=== PATIENT | female | born 1950 | race Caucasian/White ===

== ENCOUNTER 2017-08-07 13:34 | Emergency (ER) | payer OTHER ==
[2017-08-07 14:00] VITALS: RESP 16
--- NOTE | 2017-08-07 14:50 | EDPHY ---
H & P Stated Complaint: wound vac issues Time Seen by Provider: 08/07/17 14:21 HPI/ROS: CHIEF COMPLAINT: Wound VAC malfunction HISTORY OF PRESENT ILLNESS: This is a 67-year-old female who underwent debridement of a right lower extremity wound prior to planned skin grafting. The debridement was performed around 07/16/2017 and she is scheduled to undergo skin grafting next week. She presents today with a malfunction of her wound VAC. There is an occlusion at the takeoff of the tubing from her extremity. REVIEW OF SYSTEMS: A ten point review of systems was performed and is negative with the exception of the items mentioned in the HPI. She had diarrhea. Stool is been sent for culture. She is taking Augmentin and Flagyl. Past medical history: Right lower extremity injury Past surgical history: Right lower extremity debridement Social history: She does not use tobacco products. She is employed. General Appearance: Alert. Vital signs reviewed. Eyes: Pupils equal and round, no conjunctival injection, no discharge. Anicteric. ENT, Mouth: Mucous membranes are moist, no oropharyngeal erythema or edema. Neck: No lymphadenopathy, supple. Respiratory: Lungs are clear to auscultation; no wheezes, rales, or rhonchi. Cardiovascular: Regular rate and rhythm; no murmur, rub, or gallop. Gastrointestinal: Abdomen is soft and nontender, no masses or organomegaly, bowel sounds normal. Skin: Wound VAC in place over her right lower extremity. There is an area of erythema visible underlying the wound VAC dressing. Wound VAC itself is registering that there is an obstruction present. Back: Nontender to palpation over the thoracolumbar spine. No CVAT. Extremities: No lower extremity edema, no calf tenderness or swelling. Neurological: Alert and oriented. Moving all four extremities easily and equally. Psychiatric: Normal affect. - Personal History Current Tetanus/Diphtheria Vaccine: Yes Current Tetanus Diphtheria and Acellular Pertussis (TDAP): Yes - Medical/Surgical History Hx Asthma: No Hx Chronic Respiratory Disease: No Hx Diabetes: No Hx Cardiac Disease: No Hx Renal Disease: No Hx Cirrhosis: No Hx Alcoholism: No Hx HIV/AIDS: No Hx Splenectomy or Spleen Trauma: No Other PMH: HTN, R leg fx, poss c.diff - Social History Smoking Status: Never smoked Constitutional: Initial Vital Signs Temperature (C) 36.9 C 08/07/17 13:55 Heart Rate 84 08/07/17 13:55 Respiratory Rate 16 08/07/17 13:55 Blood Pressure 152/91 H 08/07/17 13:55 O2 Sat (%) 92 08/07/17 13:55 O2 Delivery Mode Room Air Allergies/Adverse Reactions: No Known Allergies Allergy (Verified 08/07/17 13:54) Home Medications: Medication Instructions Recorded Amlodipine Besylate 07/19/17 Herbals/Supplements -Info Only 07/19/17 Lisinopril 07/19/17 Zolpidem Tartrate 07/19/17 Augmentin 200 MG/5 ML (*) 08/07/17 Metronidazole 08/07/17 Medical Decision Making ED Course/Re-evaluation: Dr. Mckenzie came to the emergency department and dealt with this lady's wound VAC. She will follow up with Dr. Guo. No other emergency department treatment needed. Differential Diagnosis: Considered a differential diagnosis that includes but is not limited to wound VAC malfunction, lower extremity infection, DVT. Departure - Departure Disposition: Home, Routine, Self-Care Clinical Impression: WOUND VAC Condition: Good Instructions: Negative Pressure Wound Therapy (DC) Additional Instructions: Follow up with Dr. Guo as planned. Referrals: BOBO GONZALES [Other] - As per Instructions Marta Guo MD [Medical Doctor] - As per Instructions
[2017-08-07 16:28] VITALS: BP 145/75; PULSE 78; TEMP 97.9; O2SAT 96
== END 2017-08-07 16:28 | disposition home or self-care (01) ==
DX: T81.89XA Other complications of procedures, not elsewhere classified, initial encounter (principal); I10 Essential (primary) hypertension; Y82.9 Unspecified medical devices associated with adverse incidents

== ENCOUNTER 2017-08-13 06:09 | Day surgery (SDC) | payer OTHER ==
[2017-08-13] MEDS ORDERED: ceFAZolin 2 GM/SWFI 2 GM/20 ML SYR IVP ONE (06:27)
[2017-08-13] MEDS ORDERED: LIDOCAINE 1% 2 ML INJ ID PRN (06:28)
[2017-08-13] MEDS ORDERED: LR 1,000 ML IV ONE (06:32)
[2017-08-13 07:02] VITALS: PULSE 83
--- NOTE | 2017-08-13 07:27 | PDHPUP ---
History & Physical Update H&P update statement: This history and physical update is based on an assessment of the patient which was completed after admission or registration (within 24 hours), but prior to the surgery/procedure. H&P update: H&P reviewed & patient examined, changes noted H&P changes: Patient diagnosed with C. diff, currently being treated with oral Vancomycin. No longer having diarrhea.
[2017-08-13] MEDS ORDERED: THROMBIN (BOVINE) 20,000 UNIT SPRAY TP ONE (07:37)
[2017-08-13] MEDS ORDERED: MINERAL OIL 10 ML VIAL ONE (07:37)
[2017-08-13] MEDS ORDERED: BUPIVACAINE 0.5% 10 ML SDV ONE (07:37)
[2017-08-13] MEDS ORDERED: MIDAZOLAM 2 MG/2 ML VIAL ONE ×2 (08:26→08:36)
[2017-08-13] MEDS ORDERED: PROPOFOL 200 MG/20 ML VIAL ONE (08:34)
[2017-08-13] MEDS ORDERED: fentaNYL 100 MCG/2 ML INJ ONE ×2 (08:34→08:58)
[2017-08-13] MEDS ORDERED: MIDAZOLAM 2 MG/2 ML VIAL IVP ONE (08:36)
[2017-08-13] MEDS ORDERED: NALOXONE HCL 0.4 MG/ML INJ IVP PRN (08:37)
--- NOTE | 2017-08-13 08:37 | PDANEPAE ---
ANE Past Medical History - Cardiovascular History Hx Hypertension: Yes Hx Arrhythmias: No Hx Chest Pain: No Hx Coronary Artery / Peripheral Vascular Disease: No Hx CHF / Valvular Disease: No Hx Palpitations: No - Pulmonary History Hx COPD: No Hx Asthma/Reactive Airway Disease: No Hx Recent Upper Respiratory Infection: No Hx Oxygen in Use at Home: No Hx Sleep Apnea: No Sleep Apnea Screening Result - Last Documented: Negative - Neurologic History Hx Cerebrovascular Accident: No Hx Seizures: No Hx Dementia: No - Endocrine History Hx Diabetes: No - Renal History Hx Renal Disorders: No - Liver History Hx Hepatic Disorders: No - Neurological & Psychiatric Hx Hx Neurological and Psychiatric Disorders: No - Cancer History Hx Cancer: No - Congenital Disorder History Hx Congenital Disorders: No - GI History Hx Gastrointestinal Disorders: Yes Gastrointestinal History Comment: gerd,currently diarrhea - Other Health History Other Health History: right leg wound - Chronic Pain History Chronic Pain: No - Surgical History Prior Surgeries: COLONOSCOPY. CYST REMOVAL. WISDOM TEETH ANE Review of Systems Review of Systems: - Exercise capacity METS (RN): 4 METS ANE Patient History - Allergies Allergies/Adverse Reactions: No Known Allergies Allergy (Verified 08/13/17 07:03) - Home Medications Home Medications: Amlodipine Besylate 07/19/17 [Last Taken 08/12/17] Herbals/Supplements -Info Only 07/19/17 [Last Taken 08/06/17] Lisinopril 07/19/17 [Last Taken 08/13/17] Zolpidem Tartrate 07/19/17 [Last Taken 08/12/17] Augmentin 200 MG/5 ML (*) 08/07/17 [Last Taken 08/12/17] Metronidazole 08/07/17 [Last Taken 08/12/17] - NPO status NPO Since - Liquids (Date): 08/12/17 NPO Since - Liquids (Time): 22:00 NPO Since - Solids (Date): 08/12/17 NPO Since - Solids (Time): 20:00 - Anes Hx Anes Hx: no prior problems - Smoking Hx Smoking Status: Never smoked - Family Anes Hx Family Hx Anesthesia Complications: NONE ANE Labs/Vital Signs - Vital Signs Blood Pressure: 119/73 Heart Rate: 83 Respiratory Rate: 16 O2 Sat (%): 91 Height: 165.1 cm Weight: 70.307 kg ANE Physical Exam - Airway Neck exam: FROM Mallampati Score: Class 2 Mouth exam: normal dental/mouth exam - Pulmonary Pulmonary: no respiratory distress, no rales or rhonchi, clear to auscultation - Cardiovascular Cardiovascular: regular rate and rhythym, no murmur, rub, or gallop - ASA Status ASA Status: II ANE Anesthesia Plan Anesthesia Plan: GA w LMA
[2017-08-13] MEDS ORDERED: ONDANSETRON 4 MG/2 ML VIAL ONE (08:38)
[2017-08-13] MEDS ORDERED: DEXAMETHASONE 4 MG/ML VIAL ONE (08:38)
[2017-08-13] MEDS ORDERED: LIDOCAINE 2% 5 ML SDV ONE (08:38)
[2017-08-13] MEDS ORDERED: ONDANSETRON 4 MG/2 ML VIAL IVP PRN (09:23)
[2017-08-13] MEDS ORDERED: LR 500 ML IV PRN (09:23)
[2017-08-13] MEDS ORDERED: ACETAMINOPHEN 500 MG TAB PO PRN (09:23)
[2017-08-13] MEDS ORDERED: PROMETHAZINE HCL 25 MG/ML INJ IVP PRN (09:23)
[2017-08-13] MEDS ORDERED: OXYCODONE/APAP 5/325 TAB PO PRN (09:23)
[2017-08-13] MEDS ORDERED: fentaNYL 100 MCG/2 ML INJ IVP PRN (09:23)
--- NOTE | 2017-08-13 09:31 | POSTOPPROG ---
Post Op Note Date of Operation: 08/13/17 Surgeon: Marta Guo Adult Parole Officer: angela Anesthesiologist: junie Anesthesia: GET(General Endotracheal) Pre-op Diagnosis: traumatic RLE wound Post-op Diagnosis: same Indication: 67yoF with traumatic hematoma s/p wound vac therapy now ready for STSG Procedure: debridement skin soft tissue with misonix, STSG with wound vac placement Findings: 16x8cm, 100% healthy granulation tissue Inf/Abcess present in the surg proc area at time of surgery?: No Depth: Superfical (Skin SQ) EBL: Minimal Drains: Wound Vac Specimen(s): none
--- NOTE | 2017-08-13 09:49 | POSTANESTH ---
Post Anesthetic Evaluation Cardiovascular Status: Normal, Stable, Similar to Pre-Op Cond Respiratory Status: Normal, Stable, Similar to Pre-op Cond. Level of Consciousness/Mental Status: Can Participate in Eval, Alert and Oriented Pain Control: Adequate, Prn Tx Ordered Nausea/Vomiting Control: Adequate, Prn Tx Ordered Complications Possibly Related to Anesthesia: None Noted
[2017-08-13 09:51] VITALS: TEMP 97.9
[2017-08-13 10:00] VITALS: BP 121/71; RESP 14; O2SAT 97
--- NOTE | 2017-08-13 11:43 | GOP ---
[f rep st] OPERATIVE REPORT DATE OF OPERATION: 08/13/2017 SURGEON: Marta Guo MD TECHNICAL SUPERVISOR: Vanita Fregoso, DASH ANESTHESIA: General. ANESTHESIOLOGIST: José Luis Galarza MD PREOPERATIVE DIAGNOSIS: Right lower extremity traumatic hematoma. POSTOPERATIVE DIAGNOSIS: Right lower extremity traumatic hematoma. PROCEDURE PERFORMED: Debridement skin and soft tissue, 16 x 8 cm to the level of subcutaneous tissue with split-thickness skin graft. FINDINGS: Wound measures 16 x 8 x 0.1 cm with healthy granulation tissue at the base. SPECIMENS: None. ESTIMATED BLOOD LOSS: 10 cc. INDICATIONS: The patient is a 67-year-old woman who had trauma to her leg, broke her leg, and had a large hematoma. She required operative debridement for the traumatic hematoma on her legs. She has been doing wound VAC therapy and now presents for skin graft. DESCRIPTION OF PROCEDURE: Patient was brought into the operating room and placed supine on the table. General anesthesia was administered. Her right lower extremity was prepped and draped in the usual sterile fashion. I debrided the right lower extremity wound with my Misonix, to the level of healthy bleeding subcutaneous tissue. I then obtained a split-thickness skin graft from the right upper thigh at 1/12 thousandth of an inch. I performed high hand pie crusting. I placed the skin graft dermis side down and stapled into place, followed by Adaptic Touch and a wound VAC. On the thigh, hemostasis was achieved with electrocautery. Marjorie, Mepilex transfer, and a Tegaderm were placed. She was awakened in the operating room, extubated, and transferred to PACU in stable condition. /[id number]/MODL MTDD
== END 2017-08-13 11:05 | disposition home or self-care (01) ==
LOC: FSGY 06:09
PROVIDERS: ATTEND Surgery
PROC: 0JDN0ZZ Extraction of Right Lower Leg Subcutaneous Tissue and Fascia, Open Approach (ICD-10-PCS; principal; 2017-08-13 09:00)
PROC: 0HRKX74 Replacement of Right Lower Leg Skin with Autologous Tissue Substitute, Partial Thickness, External Approach (ICD-10-PCS; principal; 2017-08-13 09:00)
DX: S80.11XA Contusion of right lower leg, initial encounter (principal); T79.8XXA Other early complications of trauma, initial encounter; A04.72 Enterocolitis due to Clostridium difficile, not specified as recurrent; I10 Essential (primary) hypertension
CPT/HCPCS: J0171; J0690; J1100; J2250; J2405; J2704; J3010